=== PATIENT | female | born 1940 | race Caucasian/White ===

== ENCOUNTER 2021-03-22 08:40 | Inpatient (IN) ==
[~2021-03-22 08:40] MED LIST: TOTAL JOINT MIXTURE (100ML) INTRAART ONE; Vancomycin 1,250 MG/262.5 ML IV.SOLN IVPB ONE
[2021-03-22] MEDS ORDERED: Ringers Solution, Lactated 1,000 ML IVC SCH ×2 (09:15→14:15)
[2021-03-22] MEDS ORDERED: *HR* FentaNYL (PF) 100 MCG/2 ML VIAL ONE (10:07)
[2021-03-22] MEDS ORDERED: Tranexamic Acid 1,000 MG/10 ML VIAL ONE (10:08)
[2021-03-22] MEDS ORDERED: *HR* FentaNYL (PF) 100 MCG/2 ML VIAL IVP PRN (10:28)
[2021-03-22] MEDS ORDERED: Ondansetron 4 MG/2 ML VIAL IVP PRN ×2 (10:28→14:13)
[2021-03-22] MEDS ORDERED: *HR* OxyCODONE Immed Rel 5 MG TABLET PO PRN (10:28)
[2021-03-22] MEDS ORDERED: Ethanol\\Acetic Acid\\Na Ace\\Ben 1,000 ML IRRIG.SOLN IR ONE (11:34)
[2021-03-22] MEDS ORDERED: Vancomycin 1,000 MG VIAL ONE (12:58)
[2021-03-22] MEDS ORDERED: Sennosides 8.6 MG TABLET PO PRN (14:13)
[2021-03-22] MEDS ORDERED: MOM Conc 10 ML UD.LIQ PO PRN (14:13)
[2021-03-22] MEDS ORDERED: Naloxone 0.4 MG/ML INJ IVP PRN (14:13)
[2021-03-22] MEDS ORDERED: *HR* Promethazine 25 MG/ML VIAL IM PRN (14:13)
[2021-03-22] MEDS: *HR* OxyCODONE Immed Rel 5 MG TABLET PO PRN (14:59)
[2021-03-22] MEDS: Ascorbic Acid 500 MG TABLET PO SCH (16:46)
[2021-03-22] MEDS: Ketorolac 30 MG/ML VIAL IVP SCH ×2 (17:09→23:11)
[2021-03-22] MEDS: Apixaban 5 MG TABLET PO SCH (20:26)
[2021-03-22] MEDS ORDERED: CeFAZolin 2 GM/120 ML BAG IVPB SCH (21:00)
[2021-03-23 04:44] LABS: Basophils % 0.3 %; Eosinophils # 0.2 K/mcL (0.0-0.6); Eosinophils % 1.8 %; Hematocrit 30.4 % (35.3-44.9); Hemoglobin 9.8 g/dL (11.5-15.4); Immature Granulocytes % 0.3 % (0-4); Lymphocytes # 1.2 K/mcL (0.6-4.6); Lymphocytes % 12.9 %; Mean Corpuscular HGB Conc 32.2 g/dL (31.6-35.5); Mean Corpuscular Volume 96.2 fL (83.0-100.0); Mean Platelet Volume 9.9 fL (9.4-12.4); Monocytes # 0.7 K/mcL (0.0-1.3); Monocytes % 7.9 %; Neutrophils # 6.8 K/mcL (1.6-8.9); Platelet Count 241 K/mcL (140-400); Red Blood Count 3.16 M/mcL (3.82-4.97); Red Cell Distribution Width 11.9 % (11.5-14.5); Segmented Neutrophils % 76.8 %; White Blood Count 8.9 K/mcL (4.3-11.1)
[2021-03-23 04:58] LABS: BUN/Creatinine Ratio 19 (6-26); Blood Urea Nitrogen 13 mg/dL (8-23); Carbon Dioxide 26 mEq/L (23-29); Chloride 102 mEq/L (98-107); Glucose 101 mg/dL (70-105); Osmolality,Calculated 284 (280-300); Potassium 3.6 mEq/L (3.5-5.1); Sodium 137 mEq/L (136-145); eGFR For African Americans > 60 (> 60); eGFR For Non-African Americans > 60 (> 60)
[2021-03-23] MEDS: Ketorolac 30 MG/ML VIAL IVP SCH ×3 (05:59→18:20)
[2021-03-23] MEDS: Apixaban 5 MG TABLET PO SCH ×2 (08:12→20:12)
[2021-03-23] MEDS: Ascorbic Acid 500 MG TABLET PO SCH ×2 (08:12→16:09)
[2021-03-23] MEDS: Cyanocobalamin (B-12) 1,000 MCG TABLET PO SCH (08:13)
[2021-03-23] MEDS: Multivit/Ca/Min/Fe/FA 1 TAB TABLET PO SCH (08:13)
[2021-03-23] MEDS: Lisinopril-HCTZ 20-12.5mg TABLET PO SCH (08:13)
[2021-03-23] MEDS: *HR* OxyCODONE Immed Rel 5 MG TABLET PO PRN (14:47)
[2021-03-24] MEDS: Ketorolac 30 MG/ML VIAL IVP SCH ×3 (00:18→12:23)
[2021-03-24 03:21] VITALS: O2SAT 94
[2021-03-24 05:05] LABS: BUN/Creatinine Ratio 18 (6-26); Basophils % 0.2 %; Blood Urea Nitrogen 13 mg/dL (8-23); Calcium 8.7 mg/dL (8.6-10.3); Carbon Dioxide 26 mEq/L (23-29); Chloride 102 mEq/L (98-107); Eosinophils % 0.4 %; Glucose 108 mg/dL (70-105); Hematocrit 28.3 % (35.3-44.9); Hemoglobin 9.1 g/dL (11.5-15.4); Immature Granulocytes % 0.3 % (0-4); Lymphocytes # 1.2 K/mcL (0.6-4.6); Lymphocytes % 12.1 %; Mean Corpuscular HGB Conc 32.2 g/dL (31.6-35.5); Mean Corpuscular Volume 96.3 fL (83.0-100.0); Mean Platelet Volume 9.8 fL (9.4-12.4); Monocytes # 0.7 K/mcL (0.0-1.3); Monocytes % 7.2 %; Neutrophils # 7.7 K/mcL (1.6-8.9); Osmolality,Calculated 281 (280-300); Platelet Count 249 K/mcL (140-400); Potassium 3.3 mEq/L (3.5-5.1); Red Blood Count 2.94 M/mcL (3.82-4.97); Red Cell Distribution Width 12.1 % (11.5-14.5); Segmented Neutrophils % 79.8 %; Sodium 135 mEq/L (136-145); White Blood Count 9.6 K/mcL (4.3-11.1); eGFR For African Americans > 60 (> 60); eGFR For Non-African Americans > 60 (> 60)
[2021-03-24 07:33] VITALS: BP 138/77; PULSE 68; TEMP 98
[2021-03-24] MEDS: Ascorbic Acid 500 MG TABLET PO SCH (08:56)
[2021-03-24] MEDS: Apixaban 5 MG TABLET PO SCH (08:56)
[2021-03-24] MEDS: Lisinopril-HCTZ 20-12.5mg TABLET PO SCH (08:57)
[2021-03-24] MEDS: Cyanocobalamin (B-12) 1,000 MCG TABLET PO SCH (08:57)
[2021-03-24] MEDS: Multivit/Ca/Min/Fe/FA 1 TAB TABLET PO SCH (08:57)
[2021-03-24 12:08] LABS: Influenza A PCR Negative (Negative); Influenza B PCR Negative (Negative); Resp. Syncytial Virus PCR Negative (Negative); SARS-CoV-2 by PCR (In House) Negative (Negative)
== END 2021-03-24 13:27 | DRG 470 ==
LOC: SDCAOSI 08:40 → 4WAOSI 15:53
PROVIDERS: ADMIT Orthopaedic Surgery; ATTEND Orthopaedic Surgery